=== PATIENT | female | born 1945 | race Hispanic/Latino ===

== ENCOUNTER 2018-01-02 09:30 | Observation (INO) | payer OTHER ==
[2018-01-01 15:08] LABS: BASOPHILS % (AUTO) 0.6 % (0.0-5.0); EOSINOPHILS % (AUTO) 0.9 % (0.0-8.0); LYMPHOCYTES % (AUTO) 24.8 % (21.0-51.0); MEAN CORPUSCULAR HEMOGLOBIN 30.8 pg (27.0-33.0); MEAN CORPUSCULAR HGB CONC 32.6 g/dL (32.0-36.0); MEAN CORPUSCULAR VOLUME 94.5 fL (79-99); NEUTROPHILS % (AUTO) 66.7 % (40.0-77.0); PLATELET COUNT (AUTO) 213 K/uL (130-400); RED BLOOD CELL COUNT(AUTO) 4.03 MIL/uL (4.00-5.50); RED CELL DISTRIBUTION WIDTH 13.2 % (11.0-15.5); WHITE BLOOD COUNT (AUTO) 11.7 K/uL (4.8-10.8)
[2018-01-01 15:15] VITALS: BP 153/71
[2018-01-01 15:22] LABS: INR 0.96 (0.85-1.15); PARTIAL THROMBOPLASTIN TIME 32.3 SEC (26.3-35.5); PROTHROMBIN TIME 10.1 SEC (9.6-11.6)
[2018-01-01 15:26] LABS: APPEARANCE,URINE Clear (CLEAR); BILIRUBIN,URINE Negative (NEGATIVE); COLOR,URINE Yellow (YELLOW); GLUCOSE, URINE (UA) >=1000 mg/dL (NEGATIVE); KETONES,URINE Negative (NEGATIVE); LEUKOCYTE ESTERASE ,URINE Small (NEGATIVE); NITRATE,URINE Negative (NEGATIVE); OCCULT BLOOD,URINE Negative (NEGATIVE); PROTEIN,URINE Negative (NEGATIVE); UROBILINOGEN,URINE 0.2 mg/dL (0.2-1.0)
[2018-01-01 15:50] LABS: BACTERIA,URINE Few /HPF (None Seen); RBC,URINE 0-1 /HPF (0-1); SQUAMOUS EPITHELIAL CELL,UR Few /HPF (0-2)
[2018-01-01 15:51] LABS: YEAST,URINE BUDDING Rare /HPF (None Seen)
[2018-01-02] VITALS (27 sets, daily range): BP systolic 54–169; BP diastolic 33–89
[~2018-01-02] VITALS: Ht 149.9 cm; Wt 77.8 kg
[~2018-01-02 09:30] MED LIST: ATOR40TA71 PO; GENTAMICIN SULFATE 240 MG in SODIUM CHLORIDE 0.9% 100 ML IV SCH; GLIP10TA9 PO; LEVO75TA10 PO; REPA2TAB8 PO; SMZ-TMP PO; TRAM50TA4 PO
[2018-01-02] MEDS: CLINDAMYCIN 900 MG/D5% WATER 50 ML IV SCH ×2 (10:00→12:20)
[2018-01-02] MEDS ORDERED: SODIUM CHLORIDE 0.9% 1000ML 1,000 ML IV ONE (10:26)
[2018-01-02] MEDS ORDERED: KETOROLAC TROMETHAMINE 15MG/ML ONE (10:42)
[2018-01-02] MEDS ORDERED: ACETAMINOPHEN EXTRA STRENGTH 500 MG TABLET ONE (10:42)
[2018-01-02] MEDS ORDERED: CELECOXIB 200 MG CAP ONE (10:43)
[2018-01-02] MEDS ORDERED: OXYCODONE HCL 10 MG TAB.SR.12H PO ONE (10:43)
[2018-01-02] MEDS ORDERED: TRANEXAMIC ACID 1000MG/10ML IV ONE (11:13)
[2018-01-02] MEDS ORDERED: BUPIVACAINE/EPI/PF 0.25% 30ML VIAL IJ ONE (11:13)
[2018-01-02] MEDS ORDERED: CLINDAMYCIN PHOSPHATE 150 MG/ML 6ML VIAL ONE (11:13)
[2018-01-02] MEDS ORDERED: FENTANYL CITRATE PF 50 MCG/1 ML 2ML VIAL ONE ×2 (11:14→15:13)
[2018-01-02] MEDS ORDERED: ONDANSETRON HCL 4 MG/2 ML VIAL ONE ×3 (11:14→16:27)
[2018-01-02] MEDS ORDERED: LIDOCAINE PF 2% 5ML ABBOJECT ONE (11:14)
[2018-01-02] MEDS ORDERED: ROPIVACAINE 0.5% 5MG/ML 30ML IJ ONE (11:14)
[2018-01-02] MEDS ORDERED: PROPOFOL 10 MG/ML 20ML VIAL IV ONE (11:14)
[2018-01-02] MEDS ORDERED: DEXAMETHASONE SOD PHOSPHATE 10MG/ML 1ML VIAL ONE (11:14)
[2018-01-02] MEDS ORDERED: ROCURONIUM 10MG/1ML SYR 10 MG/ML ML ONE (11:15)
[2018-01-02] MEDS ORDERED: MIDAZOLAM HCL 1 MG/ML 2ML VIAL ONE (11:15)
[2018-01-02] MEDS ORDERED: NEOSTIGMINE 5MG/5ML SYR IV ONE (11:15)
[2018-01-02] MEDS ORDERED: GLYCOPYRROLATE 1 MG/5 ML SYRINGE ONE (11:21)
[2018-01-02] MEDS ORDERED: EPHEDRINE SULFATE 50 MG/ML AMPULE ONE ×2 (12:00→15:32)
[2018-01-02] MEDS ORDERED: FAMOTIDINE/PF 20 MG/2 ML VIAL IV ONE (13:06)
[2018-01-02] MEDS ORDERED: VANCOMYCIN HCL 1 GM VIAL ONE (13:19)
[2018-01-02 14:16] LABS: BF LYMPHOCYTE 21 %; BF MESOTHELIAL 4 %; BF MONOCYTE 2 %
[2018-01-02] MEDS ORDERED: POTASSIUM CHLORIDE 20 MEQ ERTAB PO PRN (15:00)
[2018-01-02] MEDS ORDERED: CALCIUM CARBONATE 500 MG TABLET PO PRN (15:00)
[2018-01-02] MEDS ORDERED: TRAMADOL HCL 50 MG TABLET PO PRN (15:00)
[2018-01-02] MEDS ORDERED: OXYCODONE HCL 5 MG TAB PO PRN (15:00)
[2018-01-02] MEDS ORDERED: FERROUS FUMARATE 324 MG TABLET PO PRN (15:00)
[2018-01-02] MEDS ORDERED: DiphenhydrAMINE HCL 50 MG/ML VIAL IVP PRN (15:00)
[2018-01-02] MEDS ORDERED: POTASSIUM CHLORIDE 10% ELIXIR 20 MEQ/15 ML UDCUP PO PRN (15:00)
[2018-01-02] MEDS: ACETAMINOPHEN EXTRA STRENGTH 500 MG TABLET PO SCH ×2 (15:00→20:46)
[2018-01-02] MEDS ORDERED: POTASSIUM CHLORIDE 20MEQ/100ML 100 ML IV PRN (15:00)
[2018-01-02] MEDS ORDERED: KETOROLAC TROMETHAMINE 15MG/ML IV PRN (15:00)
[2018-01-02] MEDS ORDERED: LIDOCAINE HCL-MPF 1% 2ML VIAL IVP PRN (15:00)
[2018-01-02] MEDS ORDERED: TEMAZEPAM 15 MG CAPSULE PO PRN (15:00)
[2018-01-02 15:32] LABS: APPEARANCE BODY FLUID TURBID (CLEAR); COLOR,BODY FLUID RED (LT YELLOW); SPECIMENTYPE,BODY FLUID SYNOVIAL; TOTAL VOLUME,BODY FLUID 3 mL
[2018-01-02 15:33] LABS: BODY FLUID RBC 41093 /cu. mm.; BODY FLUID WBC 223 /cu. mm.
[2018-01-02] MEDS: ONDANSETRON HCL 4 MG/2 ML VIAL IVP PRN (15:54)
[2018-01-02] MEDS: INSULIN HUMULIN R 100 UNIT/ML 3ML SQ SCH ×2 (16:30→22:04)
[2018-01-02] MEDS: PREGABALIN 25 MG CAP PO SCH (20:45)
[2018-01-02] MEDS: ASPIRIN 325 MG TABLET PO SCH (20:45)
[2018-01-02] MEDS: CLINDAMYCIN 900 MG/D5% WATER 50 ML IVPB SCH (20:45)
[2018-01-02] MEDS: CELECOXIB 200 MG CAP PO SCH (20:45)
[2018-01-02] MEDS: SODIUM CHLORIDE 0.9% 1000ML 1,000 ML IV SCH (20:46)
[2018-01-02] MEDS: REPAGLINIDE 1 MG TAB PO SCH (20:46)
[2018-01-02] MEDS: OXYCODONE HCL 5 MG TAB PO PRN (20:47)
[2018-01-02] MEDS ORDERED: INSLAN SQ (21:54)
[2018-01-03] MEDS: OXYCODONE HCL 5 MG TAB PO PRN ×2 (01:13→13:44)
[2018-01-03] MEDS: SODIUM CHLORIDE 0.9% 1000ML 1,000 ML IV SCH ×2 (01:13→08:46)
[2018-01-03] MEDS: CLINDAMYCIN 900 MG/D5% WATER 50 ML IVPB SCH (03:23)
[2018-01-03 04:26] VITALS: BP 139/62
[2018-01-03 04:55] LABS: HEMATOCRIT 32.4 % (36-48); MEAN CORPUSCULAR HEMOGLOBIN 30.9 pg (27.0-33.0); MEAN CORPUSCULAR HGB CONC 32.7 g/dL (32.0-36.0); MEAN CORPUSCULAR VOLUME 94.6 fL (79-99); PLATELET COUNT (AUTO) 172 K/uL (130-400); RED BLOOD CELL COUNT(AUTO) 3.43 MIL/uL (4.00-5.50); RED CELL DISTRIBUTION WIDTH 13.1 % (11.0-15.5); WHITE BLOOD COUNT (AUTO) 16.3 K/uL (4.8-10.8)
[2018-01-03 05:07] LABS: CREATININE 1.7 mg/dL (0.5-1.5); POTASSIUM 4.6 mmol/L (3.5-5.1)
[2018-01-03] MEDS: INSULIN HUMULIN R 100 UNIT/ML 3ML SQ SCH ×3 (05:17→20:47)
[2018-01-03] MEDS ORDERED: LEVOTHYROXINE 75 MCG TABLET ONE (05:19)
[2018-01-03] MEDS ORDERED: LEVOTHYROXINE 75 MCG TABLET PO SCH (06:30)
[2018-01-03 07:33] VITALS: BP 139/74
[2018-01-03] MEDS: GLIPIZIDE 5 MG TABLET PO SCH ×2 (08:55→20:42)
[2018-01-03] MEDS: ACETAMINOPHEN EXTRA STRENGTH 500 MG TABLET PO SCH ×2 (08:55→16:00)
[2018-01-03] MEDS: CELECOXIB 200 MG CAP PO SCH ×2 (08:55→20:42)
[2018-01-03] MEDS: ASPIRIN 325 MG TABLET PO SCH ×2 (08:55→20:42)
[2018-01-03] MEDS: PREGABALIN 25 MG CAP PO SCH ×2 (08:56→20:42)
[2018-01-03] MEDS: REPAGLINIDE 1 MG TAB PO SCH ×3 (08:56→20:42)
[2018-01-03] MEDS ORDERED: ATORVASTATIN CALCIUM 40 MG TABLET PO SCH (09:00)
[2018-01-03] MEDS ORDERED: FAMOTIDINE 20MG TAB 20 MG TAB PO SCH (09:00)
[2018-01-03] MEDS ORDERED: POLYETHYLENE GLYCOL 3350 17 GM POWD.PACK PO SCH (09:00)
[2018-01-03] MEDS: ONDANSETRON HCL 4 MG/2 ML VIAL IVP PRN (09:06)
[2018-01-03 11:12] VITALS: BP 146/74
[2018-01-03 16:00] VITALS: BP 140/71
[2018-01-03] MEDS ORDERED: ASPI-1012 PO (18:20)
[2018-01-03] MEDS ORDERED: HYDR-4457 PO (18:20)
[2018-01-03] MEDS ORDERED: INSULIN GLARGINE 100 UNITS/ML 10 ML VIAL SQ SCH (21:00)
[2018-01-05] MEDS ORDERED: BISACODYL 10 MG SUPP.RECT RC PRN (15:00)
== END 2018-01-03 21:15 ==
LOC: DAH 09:30 → DAHIP 09:31 → DAH 09:31 → 4AH 15:45
PROVIDERS: ADMIT Orthopaedic Surgery; ATTEND Orthopaedic Surgery
DX: M17.32 Unilateral post-traumatic osteoarthritis, left knee (principal); Z79.899 Other long term (current) drug therapy; Z79.01 Long term (current) use of anticoagulants
CPT/HCPCS: 27447; 36415 ×2; 80048; 81001; 82948 ×8; 85025; 85027; 85610; 85730; 87070; 87076; 87205; 88305; 88311; 89051; 96365; 96366; 96367; 96372 ×2; 96375; 96376 ×2; 97116 ×2; 97161; 97530; A4215; A4600; A4649 ×5; A4930 ×3; A9272; C1763; C1776; G0378 ×36; G8978; G8979; G8980; G8981; G8982; G8983; J1100; J1580; J1815 ×4; J1885; J2001; J2250; J2405 ×5; J2704; J2710; J2795; J3010 ×2; J3370; J3490 ×8; J7030 ×2; 96374

== ENCOUNTER 2019-01-30 06:41 | Observation (INO) | payer OTHER ==
[2019-01-29 15:39] LABS: BASOPHILS % (AUTO) 0.5 % (0.0-5.0); BILIRUBIN,URINE Negative (NEGATIVE); COLOR,URINE Yellow (YELLOW); EOSINOPHILS % (AUTO) 0.7 % (0.0-8.0); GLUCOSE, URINE (UA) TRACE mg/dL (NEGATIVE); HEMATOCRIT 36.4 % (36-48); KETONES,URINE Negative (NEGATIVE); LEUKOCYTE ESTERASE ,URINE Moderate (NEGATIVE); LYMPHOCYTES % (AUTO) 19.7 % (21.0-51.0); MEAN CORPUSCULAR HEMOGLOBIN 31.1 pg (27.0-33.0); MEAN CORPUSCULAR HGB CONC 33.7 g/dL (32.0-36.0); MEAN CORPUSCULAR VOLUME 92.3 fL (79-99); MONOCYTES % (AUTO) 7.7 % (3.0-13.0); NEUTROPHILS % (AUTO) 71.4 % (40.0-77.0); NITRATE,URINE Negative (NEGATIVE); OCCULT BLOOD,URINE Negative (NEGATIVE); PLATELET COUNT (AUTO) 190 K/uL (130-400); PROTEIN,URINE Trace mg/dL (NEGATIVE); RED BLOOD CELL COUNT(AUTO) 3.94 MIL/uL (4.00-5.50); WHITE BLOOD COUNT (AUTO) 13.3 K/uL (4.8-10.8)
[2019-01-29 15:56] LABS: APPEARANCE,URINE SLIGHTLY CLOUDY (CLEAR)
[2019-01-29 16:03] LABS: BACTERIA,URINE Few /HPF (None Seen); RBC,URINE 0-1 /HPF (0-1)
[2019-01-29 16:04] LABS: SQUAMOUS EPITHELIAL CELL,UR Few /HPF (0-2)
[2019-01-29 16:57] VITALS: BP 177/78
--- NOTE | 2019-01-29 18:34 | NUR ---
UA INFORMED DR. VALDEZ OF ABNORMAL UA. ORDERS RECEIVED TO GIVE GENTAMICIN 240MG IV ON AM OF PROCEDURE AND SEND URINE FOR CULTURE.
[2019-01-30] VITALS (24 sets, daily range): BP systolic 90–153; BP diastolic 42–76
[~2019-01-30] VITALS: Ht 147.3 cm; Wt 74.8 kg
[2019-01-30] MEDS: CLINDAMYCIN 900 MG/D5% WATER 50 ML IV SCH ×2 (06:00→08:40)
[~2019-01-30 06:41] MED LIST changes: +FURO20TA4 PO; -GENTAMICIN SULFATE 240 MG in SODIUM CHLORIDE 0.9% 100 ML IV SCH; +INSU3INS3 SQ; +LEVO100T12 PO; -LEVO75TA10 PO; +SIME180C46 PO; -SMZ-TMP PO
--- NOTE | 2019-01-30 07:20 | NUR ---
ANT BITES pt states she stepped on an ant bed prior to admission to the hospital ,several small red areas observed on pts right foot ,warm to touch ,notified Adam Sandoval Addendum: 01/30/19 at 1107 by STEVAN CRUZ RN RN Amended: Links added.
[2019-01-30] MEDS ORDERED: GENTAMICIN SULFATE 240 MG in SODIUM CHLORIDE 0.9% 100 ML IV SCH ×2 (07:30)
[2019-01-30] MEDS ORDERED: SODIUM CHLORIDE 0.9% 1000ML 1,000 ML IV ONE (07:43)
[2019-01-30] MEDS ORDERED: CLINDAMYCIN PHOSPHATE 150 MG/ML 6ML VIAL ONE (07:47)
[2019-01-30] MEDS ORDERED: DiphenhydrAMINE HCL 50 MG/ML VIAL ONE (08:12)
[2019-01-30] MEDS: GENTAMICIN SULFATE 240 MG in SODIUM CHLORIDE 0.9% 100 ML IV SCH ×3 (08:15→12:45)
[2019-01-30] MEDS ORDERED: LIDOCAINE PF 2% 5ML ABBOJECT ONE (08:23)
[2019-01-30] MEDS ORDERED: PROPOFOL 10 MG/ML 20ML VIAL IV ONE (08:24)
[2019-01-30] MEDS ORDERED: ONDANSETRON HCL 4 MG/2 ML VIAL ONE (08:24)
[2019-01-30] MEDS ORDERED: MIDAZOLAM HCL 1 MG/ML 2ML VIAL ONE (08:24)
[2019-01-30] MEDS ORDERED: DEXAMETHASONE SOD PHOSPHATE 10MG/ML 1ML VIAL ONE (08:24)
[2019-01-30] MEDS ORDERED: FENTANYL CITRATE PF 50 MCG/1 ML 2ML VIAL ONE ×2 (08:25→09:09)
[2019-01-30] MEDS ORDERED: ROCURONIUM 10MG/1ML SYR 10 MG/ML ML ONE (08:28)
[2019-01-30] MEDS ORDERED: TRANEXAMIC ACID 1000MG/10ML IV ONE ×2 (08:28→11:09)
[2019-01-30] MEDS: TRANEXAMIC ACID 1,000 MG in SODIUM CHLORIDE 0.9% 100 ML IV SCH (08:45)
[2019-01-30] MEDS ORDERED: EPHEDRINE SULFATE 50 MG/ML AMPULE ONE (08:53)
[2019-01-30] MEDS: SODIUM CHLORIDE 0.9% 1000ML 1,000 ML IV SCH (10:31)
[2019-01-30] MEDS ORDERED: OXYCODONE HCL 5 MG TAB PO PRN ×2 (10:45)
[2019-01-30] MEDS ORDERED: POTASSIUM CHLORIDE 20 MEQ ERTAB PO PRN (10:45)
[2019-01-30] MEDS ORDERED: LIDOCAINE HCL-MPF 1% 2ML VIAL IV PRN (10:45)
[2019-01-30] MEDS ORDERED: POTASSIUM CHLORIDE 10% ELIXIR 20 MEQ/15 ML UDCUP PO PRN (10:45)
[2019-01-30] MEDS ORDERED: POTASSIUM CHLORIDE 20MEQ/100ML 100 ML IV PRN (10:45)
[2019-01-30] MEDS ORDERED: ONDANSETRON HCL 4 MG/2 ML VIAL IVP PRN (10:45)
[2019-01-30] MEDS ORDERED: DiphenhydrAMINE HCL 50 MG/ML VIAL IVP PRN (10:45)
[2019-01-30] MEDS: ACETAMINOPHEN EXTRA STRENGTH 500 MG TABLET PO SCH ×2 (10:45→18:32)
[2019-01-30] MEDS ORDERED: CALCIUM CARBONATE 500 MG TABLET PO PRN (10:45)
[2019-01-30] MEDS ORDERED: GLYCOPYRROLATE 1 MG/5 ML SYRINGE ONE (10:57)
[2019-01-30] MEDS ORDERED: NEOSTIGMINE 5MG/5ML SYR IV ONE (10:58)
[2019-01-30] MEDS ORDERED: ATOR40TA71 PO (11:02)
[2019-01-30] MEDS: INSULIN HUMULIN R 100 UNIT/ML 3ML SQ SCH ×3 (11:30→21:52)
[2019-01-30] MEDS ORDERED: PHARMACY COMMUNICATION MISC SCH (12:30)
[2019-01-30] MEDS ORDERED: GLIPIZIDE 5 MG TABLET PO SCH (16:30)
[2019-01-30] MEDS: VANCOMYCIN 1GM+NS 250ML 250 ML IV SCH (17:03)
[2019-01-30] MEDS: REPAGLINIDE 1 MG TAB PO SCH (17:06)
[2019-01-30] MEDS: INSULIN GLARGINE 100 UNITS/ML 10 ML VIAL SQ SCH (17:13)
[2019-01-30] MEDS: PREGABALIN 25 MG CAP PO SCH (21:48)
[2019-01-30] MEDS: ASPIRIN 81MG TAB.CHEW PO SCH (21:49)
[2019-01-30] MEDS: CELECOXIB 200 MG CAP PO SCH (21:49)
[2019-01-31 03:37] VITALS: BP 112/57
[2019-01-31] MEDS: ACETAMINOPHEN EXTRA STRENGTH 500 MG TABLET PO SCH ×3 (04:08→18:45)
[2019-01-31] MEDS: SODIUM CHLORIDE 0.9% 1000ML 1,000 ML IV SCH ×2 (04:09→06:18)
[2019-01-31] MEDS: VANCOMYCIN 1GM+NS 250ML 250 ML IV SCH (04:09)
[2019-01-31 04:15] LABS: CREATININE 1.8 mg/dL (0.5-1.5); POTASSIUM 4.3 mmol/L (3.5-5.1)
[2019-01-31] MEDS: GLIPIZIDE 5 MG TABLET PO SCH ×2 (06:17→16:34)
[2019-01-31] MEDS: INSULIN HUMULIN R 100 UNIT/ML 3ML SQ SCH ×3 (06:18→16:31)
[2019-01-31] MEDS ORDERED: LEVOTHYROXINE 100 MCG TABLET PO SCH (06:30)
[2019-01-31] MEDS: TRANEXAMIC ACID 1,000 MG in SODIUM CHLORIDE 0.9% 100 ML IV SCH (07:08)
[2019-01-31 07:38] VITALS: BP 133/66
[2019-01-31] MEDS ORDERED: GENTAMICIN SULFATE 240 MG in SODIUM CHLORIDE 0.9% 100 ML IV SCH (08:00)
[2019-01-31] MEDS: INSULIN GLARGINE 100 UNITS/ML 10 ML VIAL SQ SCH ×2 (08:33→16:30)
[2019-01-31] MEDS: TRAMADOL HCL 50 MG TABLET PO PRN ×2 (08:35→17:36)
--- NOTE | 2019-01-31 08:50 | NUR ---
GENTAMICIN CALLED PHARMACY AND SPOKE TO EDI TO REPORT THAT PATIENT HAS GENTAMICIN DOSE DUE THIS MORNING BUT I AM UNABLE TO PULL MEDICATION OUT OF OMNICELL. EDI TOLD ME SHE WOULD ASK PHARMACIST TO PROFILE MEDICATION SO I WOULD BE ABLE TO PULL MEDICATION.
[2019-01-31] MEDS: REPAGLINIDE 1 MG TAB PO SCH ×3 (08:57→16:33)
[2019-01-31] MEDS ORDERED: FUROSEMIDE 20 MG TABLET PO SCH (09:00)
[2019-01-31] MEDS ORDERED: COMPOUND IV REFRIGERATED 1 EACH IVSOLN MISC PRN (09:00)
[2019-01-31] MEDS ORDERED: POLYETHYLENE GLYCOL 3350 17 GM POWD.PACK PO SCH (09:00)
[2019-01-31] MEDS ORDERED: FAMOTIDINE 20MG TAB 20 MG TAB PO SCH (09:00)
[2019-01-31] MEDS: CELECOXIB 200 MG CAP PO SCH ×2 (09:39→20:57)
[2019-01-31] MEDS: PREGABALIN 25 MG CAP PO SCH ×2 (09:39→20:58)
[2019-01-31] MEDS: ASPIRIN 81MG TAB.CHEW PO SCH ×2 (09:40→20:58)
--- NOTE | 2019-01-31 10:00 | NUR ---
MET W PATIENT - ALONE, AAOXEmiliano LIVES [place], HAS ROLLING WALKER AT HOME NO STAIRS, DRIVES, FAMILY CLOSE BY, PREVIOSULY INDEPENDENT OF ADLS, RECENT PURCHASE WALKER WITH WHEELS, PT REQUESTING FACLITY PLACMENT- REQUEST SENT, AUTH PENDING VAN ANTONI, CHART TAGGED Addendum: 01/31/19 at 0 by BAO COTTER RN CM Amended: Links added.
[2019-01-31 11:30] VITALS: BP 126/79
--- NOTE | 2019-01-31 13:35 | NUR ---
DISCHARGE/RETAMA PENDING FOR DR. VALDEZ TO ARRIVE TO FLOOR TO BRING PATIENT SCRIPT FOR FORTUNA.
[2019-01-31] MEDS ORDERED: ASPI-1005 PO (13:38)
[2019-01-31] MEDS ORDERED: HYDR-4457 PO (13:38)
--- NOTE | 2019-01-31 15:45 | NUR ---
SANGITA DAVIDSON RN AWARE, PASSR SENT CHART TAGGED, VAN TRANSPORT Addendum: 01/31/19 at 1927 by BAO COTTER RN CM Amended: Links added.
[2019-01-31 15:57] VITALS: BP 124/94
[2019-01-31] MEDS ORDERED: MACR100 PO (18:50)
[2019-02-02] MEDS ORDERED: BISACODYL 10 MG SUPP.RECT RC PRN (10:45)
[2019-02-04] MEDS ORDERED: ATORVASTATIN CALCIUM 40 MG TABLET PO SCH (21:00)
== END 2019-01-31 21:32 ==
LOC: DAH 06:41 → DAHIP 06:42 → DAH 06:42 → 4AH 11:17 → EDSTATUS 14:00
PROVIDERS: ADMIT Orthopaedic Surgery; ATTEND Orthopaedic Surgery
DX: M17.11 Unilateral primary osteoarthritis, right knee (principal); E11.22 Type 2 diabetes mellitus with diabetic chronic kidney disease; N18.3 Chronic kidney disease, stage 3 (moderate); M19.90 Unspecified osteoarthritis, unspecified site; Z90.49 Acquired absence of other specified parts of digestive tract; Z96.652 Presence of left artificial knee joint; Z79.4 Long term (current) use of insulin; Z79.82 Long term (current) use of aspirin; Z79.899 Other long term (current) drug therapy; Z88.0 Allergy status to penicillin
CPT/HCPCS: 27447; 36415 ×2; 80048; 81001; 82948 ×7; 85025; 87088; 87641; 88305; 88311; 96365; 96366 ×2; 96367; 96372 ×2; 96375; 97039 ×2; 97116; 97161; 97530 ×3; A4215; A4221; A4222; A4223; A4600; A4649 ×4; A4663; A4930 ×3; A5120; C1763; C1776; G0168; G0378 ×33; G8979; G8980; G8981; G8982; G8983; J1100; J1200; J1580 ×2; J1815 ×5; J2001; J2250; J2405; J2704; J2710; J3010 ×2; J3370 ×2; J3490 ×6; J7030 ×2; J7120; 96368; 96374

== ENCOUNTER 2019-02-18 15:43 | Inpatient (IN) | payer OTHER ==
[~2019-02-18] VITALS: Ht 152.4 cm; Wt 72.4 kg
[~2019-02-18 15:43] MED LIST changes: +ASPI-1005 PO; +HYDR-4457 PO; +MACR100 PO; -SIME180C46 PO; -TRAM50TA4 PO
[2019-02-18 16:22] LABS: BASOPHILS % (AUTO) 0.3 % (0.0-5.0); HEMATOCRIT 32.1 % (36-48); LYMPHOCYTES % (AUTO) 1.5 % (21.0-51.0); MEAN CORPUSCULAR HEMOGLOBIN 30.9 pg (27.0-33.0); MEAN CORPUSCULAR HGB CONC 33.1 g/dL (32.0-36.0); MEAN CORPUSCULAR VOLUME 93.6 fL (79-99); MONOCYTES % (AUTO) 2.6 % (3.0-13.0); NEUTROPHILS % (AUTO) 95.6 % (40.0-77.0); PLATELET COUNT (AUTO) 247 K/uL (130-400); RED BLOOD CELL COUNT(AUTO) 3.43 MIL/uL (4.00-5.50); RED CELL DISTRIBUTION WIDTH 14.5 % (11.0-15.5); WHITE BLOOD COUNT (AUTO) 28.1 K/uL (4.8-10.8)
[2019-02-18] MEDS ORDERED: MEROPENEM 1 GM VIAL ONE ×2 (16:36→16:37)
[2019-02-18] MEDS ORDERED: SODIUM CHLORIDE 0.9% 0 ML IV ONE (16:36)
[2019-02-18] MEDS ORDERED: SODIUM CHLORIDE 0.9% 100 ML IV ONE (16:37)
[2019-02-18 16:54] LABS: ALBUMIN 2.8 g/dL (3.5-5.0); BILIRUBIN,TOTAL 0.5 mg/dL (0.2-1.0); CREATININE 2.3 mg/dL (0.5-1.5); POTASSIUM 4.1 mmol/L (3.5-5.1); TOTAL PROTEIN, SERUM 7.2 g/dL (6.0-8.3)
[2019-02-18 17:08] LABS: APPEARANCE,URINE SL CLOUDY (CLEAR); BILIRUBIN,URINE NEGATIVE (NEGATIVE); COLOR,URINE YELLOW (YELLOW); GLUCOSE, URINE (UA) NEGATIVE (NEGATIVE); KETONES,URINE NEGATIVE (NEGATIVE); LEUKOCYTE ESTERASE ,URINE SMALL (NEGATIVE); NITRATE,URINE NEGATIVE (NEGATIVE); OCCULT BLOOD,URINE MODERATE (NEGATIVE); PH,URINE 6.5 (5.0-8.0); PROTEIN,URINE TRACE mg/dL (NEGATIVE); UROBILINOGEN,URINE 0.2 mg/dL (0.2-1.0)
[2019-02-18 17:09] LABS: INR 1.04 (0.85-1.15); PROTHROMBIN TIME 10.9 SEC (9.6-11.6)
[2019-02-18 17:11] LABS: BACTERIA,URINE Moderate /HPF (None Seen)
[2019-02-18 17:12] LABS: MUCUS,URINE Few LPF (None Seen)
[2019-02-18 17:15] LABS: TROPONIN I 0.05 ng/mL (0.00-0.06)
[2019-02-18] MEDS ORDERED: ACETAMINOPHEN 325 MG TAB ONE ×2 (17:59→18:04)
--- NOTE | 2019-02-18 21:30 | NUR ---
REPORT RECEIVED PHONE REPORT FROM IRAIDA DURANT NURSE. FIELD APPLICATION ENGINEER WAS INFORMED THAT DR VALDEZ WAS MADE AWARE OF CONSULT WHILE PT IS IN ER.
[2019-02-18 22:45] VITALS: BP 116/55
--- NOTE | 2019-02-18 22:50 | NUR ---
ADMIT PT ADMITTED TO ROOM 416, AAOX3, DENIES ANY PAINS AT THIS TIME. RT KNEE A BIT SWOLLEN AND IS WARM TO TOUCH BUT PT STILL ABLE TO MOVE BUT WITH LIMITED ROM. ADMISSION CARE DONE. ADMISSION DATA BASE COMPLETED. HOME MEDS UPDATED AND CONTINUED PER MD ORDER. ORIENTED TO ROOM AND UNIT. SPOUSE ARRIVES AND STATED WILL STAY THE NIGHT. IN FOR MORE CARE AND MANAGEMENT. Addendum: 02/19/19 at 0018 by PIERRE BUCIO RN RN Amended: Links added.
[2019-02-18] MEDS ORDERED: RENAL DOSE IV SCH (23:00)
[2019-02-18] MEDS ORDERED: ONDANSETRON ODT 4 MG TAB PO PRN (23:15)
[2019-02-18] MEDS ORDERED: SIME180C46 PO (23:22)
[2019-02-18] MEDS ORDERED: TRAM50TA4 PO (23:22)
[2019-02-18] MEDS ORDERED: ONDA4TAB10 PO (23:22)
[2019-02-18] MEDS ORDERED: [UNRECOGNIZED DRUG - OTHER] PO (23:22)
[2019-02-18] MEDS: MEROPENEM 500 MG VIAL IVP SCH (23:30)
[2019-02-18] MEDS ORDERED: SIMETHICONE 80 MG TAB.CHEW PO PRN (23:45)
--- NOTE | 2019-02-19 02:00 | NUR ---
ROUNDS PT RESTING WELL, FAIRLY ASLEEP WITH RESPIRATIONS EVEN AND UNLABORED. NO NOTED DISTRESS. KEPT UNDISTURBED FOR NOW. WILL MONITOR PT. SPOUSE ASLEEP AT BEDSIDE.
[2019-02-19 03:43] VITALS: BP 99/49
[2019-02-19] MEDS: LEVOTHYROXINE 100 MCG TABLET PO SCH (05:47)
[2019-02-19] MEDS: INSULIN HUMULIN R 100 UNIT/ML 3ML SQ SCH ×4 (05:53→19:56)
--- NOTE | 2019-02-19 05:53 | NUR ---
MEDS AWAKENED PT FOR DUE MEDS, TOLERATED WELL. NO CONCERNS VERBALIZED AT THIS TIME. KEPT RESTED AND COMFORTABLE. FOR MORE CARE.
[2019-02-19 06:32] LABS: HEMATOCRIT 26.2 % (36-48); MEAN CORPUSCULAR HEMOGLOBIN 30.4 pg (27.0-33.0); MEAN CORPUSCULAR HGB CONC 32.9 g/dL (32.0-36.0); MEAN CORPUSCULAR VOLUME 92.4 fL (79-99); PLATELET COUNT (AUTO) 210 K/uL (130-400); RED BLOOD CELL COUNT(AUTO) 2.83 MIL/uL (4.00-5.50); RED CELL DISTRIBUTION WIDTH 13.9 % (11.0-15.5); WHITE BLOOD COUNT (AUTO) 20.6 K/uL (4.8-10.8)
[2019-02-19 06:38] LABS: POTASSIUM 3.6 mmol/L (3.5-5.1)
[2019-02-19 08:01] VITALS: BP 109/54
[2019-02-19] MEDS ORDERED: ASPIRIN 81MG TAB.CHEW PO SCH (09:00)
[2019-02-19] MEDS: FUROSEMIDE 20 MG TABLET PO SCH (10:40)
[2019-02-19] MEDS: REPAGLINIDE 1 MG TAB PO SCH ×3 (10:40→17:12)
[2019-02-19] MEDS: INSULIN GLARGINE 100 UNITS/ML 10 ML VIAL SQ SCH ×2 (10:44→19:56)
[2019-02-19 10:46] VITALS: BP 114/58
--- NOTE | 2019-02-19 11:25 | NUR ---
DCP CM met with pt and spouse discussed dc plans. Pt is semi-independent, lives at home w/spouse. Pt has a rolling walker, walker w/wheels, standard walker, bedside commode. Denies any other equipments/services. Feels safe to go back home, spouse able to assist with transportation and needs as necessary. DC plan to home once stable. CM to cont to follow up. Addendum: 02/19/19 at 1126 by KELLEY JEWELL LVN CM Amended: Links added.
[2019-02-19 15:59] VITALS: BP 132/65
--- NOTE | 2019-02-19 19:32 | NUR ---
FEVER PCP INFORMS INDUSTRIAL AERIAL INSTALLER THAT PT HAS A [id number]. PAGED TRANSACTION ADVISORY SERVICES MANAGER ELECTRONIC TESTER FOR [employer] VIA ANSWERING SERVICE, AWAITING CALL BACK.
[2019-02-19 19:45] VITALS: BP 131/65
[2019-02-19] MEDS ORDERED: PHARMACY COMMUNICATION MISC SCH (19:45)
--- NOTE | 2019-02-19 19:47 | NUR ---
UI PROGRAMMER UI PROGRAMMER RYAN, CALLED BACK AND REFERRED PT'S SPIKE OF FEVER. NEW ORDERS GIVEN, PLEASE REFER TO CPOE.
[2019-02-19] MEDS ORDERED: ACETAMINOPHEN 325 MG TAB ONE (19:52)
[2019-02-19] MEDS: ATORVASTATIN CALCIUM 40 MG TABLET PO SCH (19:56)
--- NOTE | 2019-02-19 19:56 | NUR ---
MEDS SHIFT ASSESSMENT DONE, PLEASE REFER TO CHART. DUE MEDS ADMINISTERED, TYLENOL GIVEN FOR FEVER. REMOVED EXTRA BLANKET. KEPT ROOM TEMPERATURE COOL. WILL RE-ASSESS PT. Addendum: 02/20/19 at 0034 by PIERRE BUCIO RN RN Amended: Links added.
[2019-02-19] MEDS ORDERED: ACETAMINOPHEN 325 MG TAB PO PRN (20:00)
--- NOTE | 2019-02-19 21:40 | NUR ---
RE-CHECK PT'S TEMPERATURE RE-CHECKED=99.1. KEPT RESTED AND COMFORTABLE IN BED. CALL LIGHT WITHIN REACH. WILL MONITOR PT. SPOUSE AT BEDSIDE.
--- NOTE | 2019-02-19 21:55 | NUR ---
RX PT'S MED OF CLINDAMYCIN STILL NOT PROFILED BY PHARMACY. TRIED CALLING RX BUT NO ANSWER. WILL START MED MD ORDERED AND REAL ESTATE ASSOCIATE ATTORNEY WILL FOLLOW UP WITH RX IN AM.
[2019-02-19] MEDS ORDERED: CLINDAMYCIN 300 MG/D5W 50 ML 50 ML IV ONE (22:23)
[2019-02-19] MEDS: MEROPENEM 500 MG VIAL IVP SCH (22:26)
[2019-02-19 23:41] VITALS: BP 129/62
[2019-02-20] MEDS: ASPIRIN 81 MG EC TAB PO SCH ×3 (00:18→21:19)
--- NOTE | 2019-02-20 02:00 | NUR ---
ROUNDS PT RESTING WELL, FAIRLY ASLEEP WITH RESPIRATIONS EVEN AND UNLABORED. NO NOTED DISTRESS. KEPT UNDISTURBED FOR NOW. WILL MONITOR PT. CALL LIGHT WITHIN REACH. SPOUSE ASLEEP AT BEDSIDE.
[2019-02-20 03:00] VITALS: BP 139/71
--- NOTE | 2019-02-20 05:20 | NUR ---
BLOOD SUGAR PT'S BLOOD SUGAR=40. PT IS AAOX3. DENIES ANY DISCOMFORT AT THIS TIME. PT IS ASYMPTOMATIC. FOOD PROVIDED FOR PT TO TAKE. WILL RE-ASSESS PT.
[2019-02-20] MEDS: LEVOTHYROXINE 100 MCG TABLET PO SCH (05:52)
[2019-02-20] MEDS: INSULIN HUMULIN R 100 UNIT/ML 3ML SQ SCH ×4 (05:52→21:00)
[2019-02-20] MEDS ORDERED: CLINDAMYCIN 300 MG/D5W 50 ML 50 ML IV SCH (06:00)
[2019-02-20 06:20] LABS: BASOPHILS % (AUTO) 0.1 % (0.0-5.0); EOSINOPHILS % (AUTO) 3.4 % (0.0-8.0); HEMATOCRIT 30.8 % (36-48); LYMPHOCYTES % (AUTO) 10.5 % (21.0-51.0); MEAN CORPUSCULAR HGB CONC 33.1 g/dL (32.0-36.0); MEAN CORPUSCULAR VOLUME 93.5 fL (79-99); PLATELET COUNT (AUTO) 202 K/uL (130-400); RED BLOOD CELL COUNT(AUTO) 3.29 MIL/uL (4.00-5.50); RED CELL DISTRIBUTION WIDTH 14.1 % (11.0-15.5); WHITE BLOOD COUNT (AUTO) 11.9 K/uL (4.8-10.8)
[2019-02-20 06:21] LABS: CREATININE 1.8 mg/dL (0.5-1.5); POTASSIUM 3.4 mmol/L (3.5-5.1)
--- NOTE | 2019-02-20 07:00 | NUR ---
WELCOME CENTER ATTENDANT WELCOME CENTER ATTENDANT, MS [employer] MADE AWARE OF PT'S LOW GLUCOSE THIS AM. NEW ORDER FOR HYPOGLYCEMIA PROTOCOL RECEIVED, PLEASE REFER TO CPOE.
[2019-02-20] MEDS ORDERED: GLUCAGON 1MG KIT 1 MG ML IM PRN (07:30)
[2019-02-20 08:00] VITALS: BP 131/63
[2019-02-20] MEDS: REPAGLINIDE 1 MG TAB PO SCH ×3 (09:28→17:00)
[2019-02-20] MEDS: GLIPIZIDE 5 MG TABLET PO SCH ×2 (09:28→17:34)
[2019-02-20] MEDS: FUROSEMIDE 20 MG TABLET PO SCH (09:28)
[2019-02-20] MEDS: PANTOPRAZOLE SODIUM 40 MG TABLET.DR PO SCH (09:29)
[2019-02-20] MEDS: ENOXAPARIN SODIUM 30 MG/0.3 ML SQ SCH (09:29)
--- NOTE | 2019-02-20 10:43 | NUR ---
0900- waiting for Dr. Sandoval consult prior to initiate Physical Therapy Evaluation.Notified TANNA Clark and Micah Nurse Addendum: 02/20/19 at 1046 by JANEEN CARREON, PT PT Amended: Links added.
[2019-02-20 11:53] VITALS: BP 147/70
[2019-02-20] MEDS: INSULIN GLARGINE 100 UNITS/ML 10 ML VIAL SQ SCH ×2 (11:58→21:23)
--- NOTE | 2019-02-20 12:36 | NUR ---
1228 had pt sign IM Letter,faxed to [phone] and placed in chart under consent tab.
[2019-02-20] MEDS ORDERED: VANCOMYCIN PROTOCOL PER PHARMACY IV SCH (14:15)
[2019-02-20] MEDS ORDERED: COMPOUND IV REFRIGERATED 1 EACH IVSOLN MISC PRN (14:30)
[2019-02-20 16:00] VITALS: BP 145/69
[2019-02-20] MEDS: VANCOMYCIN 1.25 GM in SODIUM CHLORIDE 0.9% 250 ML IV SCH (17:33)
--- NOTE | 2019-02-20 18:19 | NUR ---
inserted new IV on the left hand 20 Gauge.
[2019-02-20 19:00] VITALS: BP 141/67
[2019-02-20] MEDS: ATORVASTATIN CALCIUM 40 MG TABLET PO SCH (21:18)
[2019-02-20] MEDS: TRAMADOL HCL 50 MG TABLET PO PRN (21:19)
[2019-02-20] MEDS ORDERED: POTASSIUM CHLORIDE 10% ELIXIR 20 MEQ/15 ML UDCUP PO PRN (23:15)
[2019-02-20] MEDS ORDERED: LIDOCAINE HCL-MPF 1% 2ML VIAL IV PRN (23:15)
[2019-02-20] MEDS ORDERED: POTASSIUM CHLORIDE 20 MEQ ERTAB PO PRN (23:15)
[2019-02-20] MEDS ORDERED: POTASSIUM CHLORIDE 20MEQ/100ML 100 ML IV PRN (23:15)
[2019-02-20 23:44] VITALS: BP 140/62
[2019-02-20] MEDS: MEROPENEM 500 MG VIAL IVP SCH (23:48)
[2019-02-21 04:00] VITALS: BP 137/71
[2019-02-21 04:29] LABS: HEMATOCRIT 27.6 % (36-48); MEAN CORPUSCULAR HEMOGLOBIN 30.8 pg (27.0-33.0); MEAN CORPUSCULAR HGB CONC 33.5 g/dL (32.0-36.0); PLATELET COUNT (AUTO) 203 K/uL (130-400); RED CELL DISTRIBUTION WIDTH 13.8 % (11.0-15.5); WHITE BLOOD COUNT (AUTO) 7.8 K/uL (4.8-10.8)
[2019-02-21 04:45] LABS: CREATININE 1.9 mg/dL (0.5-1.5); POTASSIUM 4.1 mmol/L (3.5-5.1)
[2019-02-21] MEDS: DEXTROSE 50%-WATER 50 ML DISP.SYRIN IV PRN (05:36)
[2019-02-21] MEDS: LEVOTHYROXINE 100 MCG TABLET PO SCH (06:36)
[2019-02-21] MEDS: INSULIN HUMULIN R 100 UNIT/ML 3ML SQ SCH ×4 (06:37→20:41)
[2019-02-21 07:30] VITALS: BP 145/61
[2019-02-21] MEDS: REPAGLINIDE 1 MG TAB PO SCH ×3 (08:00→17:10)
[2019-02-21] MEDS: PANTOPRAZOLE SODIUM 40 MG TABLET.DR PO SCH (08:17)
[2019-02-21] MEDS: ASPIRIN 81 MG EC TAB PO SCH ×2 (08:17→20:48)
[2019-02-21] MEDS: GLIPIZIDE 5 MG TABLET PO SCH ×2 (08:17→17:10)
[2019-02-21] MEDS: FUROSEMIDE 20 MG TABLET PO SCH (08:17)
[2019-02-21] MEDS: ENOXAPARIN SODIUM 30 MG/0.3 ML SQ SCH (08:18)
[2019-02-21] MEDS: [UNRECOGNIZED DRUG - OTHER] PO SCH ×2 (08:19→20:42)
[2019-02-21] MEDS: INSULIN GLARGINE 100 UNITS/ML 10 ML VIAL SQ SCH (08:38)
[2019-02-21 11:00] VITALS: BP 139/68
[2019-02-21 16:00] VITALS: BP 142/79
[2019-02-21 19:00] VITALS: BP 137/67
[2019-02-21] MEDS: ATORVASTATIN CALCIUM 40 MG TABLET PO SCH (20:49)
[2019-02-21] MEDS: MEROPENEM 500 MG VIAL IVP SCH (20:49)
[2019-02-21 23:57] VITALS: BP 138/54
[2019-02-22 03:00] VITALS: BP 145/58
[2019-02-22 04:32] LABS: CREATININE 1.7 mg/dL (0.5-1.5); POTASSIUM 4.3 mmol/L (3.5-5.1)
[2019-02-22] MEDS: LEVOTHYROXINE 100 MCG TABLET PO SCH (05:42)
[2019-02-22] MEDS: INSULIN HUMULIN R 100 UNIT/ML 3ML SQ SCH ×4 (05:43→21:00)
[2019-02-22 07:00] VITALS: BP 168/74
[2019-02-22] MEDS: [UNRECOGNIZED DRUG - OTHER] PO SCH ×2 (09:00→21:00)
[2019-02-22] MEDS: PANTOPRAZOLE SODIUM 40 MG TABLET.DR PO SCH (09:32)
[2019-02-22] MEDS: GLIPIZIDE 5 MG TABLET PO SCH ×2 (09:32→17:00)
[2019-02-22] MEDS: REPAGLINIDE 1 MG TAB PO SCH ×3 (09:32→17:00)
[2019-02-22] MEDS: FUROSEMIDE 20 MG TABLET PO SCH (09:33)
[2019-02-22] MEDS: ASPIRIN 81 MG EC TAB PO SCH ×2 (09:33→21:28)
[2019-02-22] MEDS: ENOXAPARIN SODIUM 30 MG/0.3 ML SQ SCH (09:35)
[2019-02-22] MEDS: INSULIN GLARGINE 100 UNITS/ML 10 ML VIAL SQ SCH (09:40)
[2019-02-22 11:00] VITALS: BP 156/72
--- NOTE | 2019-02-22 12:41 | NUR ---
Nutrition Intervention: Nutrition screen based on LOS x 4 days. Pt. on 75gm CCD diet with good p.o. intake, as per pt. Labs reviewed(Alb 2.8, BUN 27, Creat 1.7, GFR 31, BG 73). Noted renal labs improving. LBM: 02/22/19, per pt. SR-21, elastic. Recommendations: 1) Continue current diet. 2) Continue to monitor pt's nutritional status. 3) Consult RD as nutrition concerns arise. Addendum: 02/22/19 at [address] Amended: Links added.
[2019-02-22 13:31] LABS: INR 0.96 (0.85-1.15); PROTHROMBIN TIME 10.1 SEC (9.6-11.6)
--- NOTE | 2019-02-22 14:32 | NUR ---
Dr. Carpenter called re; antibiotic states will take care of it later, re; antibiotic, dose and frequency. merchandising execution manager Cesilia schumacher.
[2019-02-22 16:00] VITALS: BP 155/81
[2019-02-22] MEDS: VANCOMYCIN 1.25 GM in SODIUM CHLORIDE 0.9% 250 ML IV SCH (17:57)
[2019-02-22 20:00] VITALS: BP 148/75
[2019-02-22] MEDS: ATORVASTATIN CALCIUM 40 MG TABLET PO SCH (21:28)
[2019-02-22 23:47] VITALS: BP 140/68
[2019-02-22] MEDS: MEROPENEM 500 MG VIAL IVP SCH (23:59)
[2019-02-23] VITALS (7 sets, daily range): BP systolic 108–154; BP diastolic 61–77
[2019-02-23] MEDS: LEVOTHYROXINE 100 MCG TABLET PO SCH (06:07)
[2019-02-23] MEDS: INSULIN HUMULIN R 100 UNIT/ML 3ML SQ SCH ×4 (06:38→21:08)
[2019-02-23] MEDS: FUROSEMIDE 20 MG TABLET PO SCH (08:59)
[2019-02-23] MEDS: ASPIRIN 81 MG EC TAB PO SCH ×2 (08:59→21:06)
[2019-02-23] MEDS: PANTOPRAZOLE SODIUM 40 MG TABLET.DR PO SCH (08:59)
[2019-02-23] MEDS: [UNRECOGNIZED DRUG - OTHER] PO SCH ×2 (09:00→21:00)
[2019-02-23] MEDS: GLIPIZIDE 5 MG TABLET PO SCH ×2 (09:00→17:00)
[2019-02-23] MEDS: REPAGLINIDE 1 MG TAB PO SCH ×3 (09:01→17:00)
[2019-02-23] MEDS: INSULIN GLARGINE 100 UNITS/ML 10 ML VIAL SQ SCH (09:09)
[2019-02-23] MEDS: ENOXAPARIN SODIUM 30 MG/0.3 ML SQ SCH (09:20)
[2019-02-23] MEDS: HYDROCODONE/ACETAMINOPHEN 5/325 MG TAB PO PRN (17:37)
[2019-02-23] MEDS: ATORVASTATIN CALCIUM 40 MG TABLET PO SCH (21:07)
[2019-02-23] MEDS: MEROPENEM 500 MG VIAL IVP SCH (23:07)
--- NOTE | 2019-02-24 03:40 | NUR ---
hypoglycemic ON ROUNDS FOR V/S CHECK , PT DROWSY ,DIFFICULT TO AROUSE , FELT WEAK, BS CHECKED 27, D50 GIVENIV PUSH AND FLUSHED APPROPRIATELY, TOLERATED WELL, REST OF V/S STABLE,NO ACUTE DISTRESS,MONITORED CLOSELY,ABLE TO RESPOND VERBALLY. Addendum: 02/24/19 at 0445 by ABE LINDSEY RN RN Amended: Links added.
[2019-02-24 04:00] VITALS: BP 142/69
[2019-02-24] MEDS: DEXTROSE 50%-WATER 50 ML DISP.SYRIN IV PRN (04:39)
[2019-02-24] MEDS: LEVOTHYROXINE 100 MCG TABLET PO SCH (05:58)
[2019-02-24] MEDS: INSULIN HUMULIN R 100 UNIT/ML 3ML SQ SCH ×4 (07:56→20:09)
[2019-02-24 08:07] VITALS: BP 164/73
[2019-02-24] MEDS: [UNRECOGNIZED DRUG - OTHER] PO SCH ×2 (09:00→19:59)
[2019-02-24] MEDS: REPAGLINIDE 1 MG TAB PO SCH ×3 (10:44→16:52)
[2019-02-24] MEDS: GLIPIZIDE 5 MG TABLET PO SCH ×2 (10:46→16:44)
[2019-02-24] MEDS: ASPIRIN 81 MG EC TAB PO SCH ×2 (10:47→19:57)
[2019-02-24] MEDS: PANTOPRAZOLE SODIUM 40 MG TABLET.DR PO SCH (10:47)
[2019-02-24] MEDS: ENOXAPARIN SODIUM 30 MG/0.3 ML SQ SCH (10:47)
[2019-02-24] MEDS: FUROSEMIDE 20 MG TABLET PO SCH (10:53)
[2019-02-24 11:00] VITALS: BP 159/69
[2019-02-24] MEDS: VANCOMYCIN 1.25 GM in SODIUM CHLORIDE 0.9% 250 ML IV SCH (15:04)
[2019-02-24 16:18] VITALS: BP 135/70
--- NOTE | 2019-02-24 16:52 | NUR ---
CM NOTE CM faxed referral to [facility]. CM to f/u with insurance for prior auth.
[2019-02-24 19:53] VITALS: BP 144/66
[2019-02-24] MEDS: ATORVASTATIN CALCIUM 40 MG TABLET PO SCH (19:57)
[2019-02-24] MEDS: MEROPENEM 500 MG VIAL IVP SCH (23:18)
[2019-02-25] MEDS: TRAMADOL HCL 50 MG TABLET PO PRN (00:46)
--- NOTE | 2019-02-25 01:00 | NUR ---
PAIN Pt medicated with Tramadol for mild pain.
[2019-02-25 04:00] VITALS: BP_SYST 156; BP_SYST 165; BP_DIAS 69; BP_DIAS 83
[2019-02-25] MEDS: INSULIN HUMULIN R 100 UNIT/ML 3ML SQ SCH ×4 (05:23→20:20)
[2019-02-25 05:27] LABS: BASOPHILS % (AUTO) 1.2 % (0.0-5.0); EOSINOPHILS % (AUTO) 2.7 % (0.0-8.0); HEMATOCRIT 29.4 % (36-48); LYMPHOCYTES % (AUTO) 23.3 % (21.0-51.0); MEAN CORPUSCULAR HGB CONC 33.8 g/dL (32.0-36.0); MEAN CORPUSCULAR VOLUME 91.6 fL (79-99); MONOCYTES % (AUTO) 9.6 % (3.0-13.0); NEUTROPHILS % (AUTO) 63.2 % (40.0-77.0); PLATELET COUNT (AUTO) 263 K/uL (130-400); RED BLOOD CELL COUNT(AUTO) 3.21 MIL/uL (4.00-5.50); RED CELL DISTRIBUTION WIDTH 13.8 % (11.0-15.5); WHITE BLOOD COUNT (AUTO) 10.5 K/uL (4.8-10.8)
[2019-02-25] MEDS: LEVOTHYROXINE 100 MCG TABLET PO SCH (06:02)
[2019-02-25 06:17] LABS: CREATININE 1.6 mg/dL (0.5-1.5); POTASSIUM 4.3 mmol/L (3.5-5.1)
[2019-02-25 07:30] VITALS: BP 139/76
[2019-02-25] MEDS: REPAGLINIDE 1 MG TAB PO SCH ×3 (08:00→16:27)
[2019-02-25] MEDS: [UNRECOGNIZED DRUG - OTHER] PO SCH ×2 (09:00→20:21)
[2019-02-25] MEDS: PANTOPRAZOLE SODIUM 40 MG TABLET.DR PO SCH (09:56)
[2019-02-25] MEDS: FUROSEMIDE 20 MG TABLET PO SCH (09:56)
[2019-02-25] MEDS: GLIPIZIDE 5 MG TABLET PO SCH ×2 (09:56→16:27)
[2019-02-25] MEDS: ASPIRIN 81 MG EC TAB PO SCH ×2 (09:57→20:21)
[2019-02-25] MEDS: ENOXAPARIN SODIUM 30 MG/0.3 ML SQ SCH (10:01)
[2019-02-25 11:00] VITALS: BP 111/77
[2019-02-25] MEDS ORDERED: CEFTRIAXONE SODIUM 2 GM VIAL IVP SCH (13:45)
--- NOTE | 2019-02-25 14:15 | NUR ---
CM Note: Cancelled VBAIU per Dr Prasad, pending [facility] and Rx approval CM met with pt discussed MD recommendations for home w/HH to infuse abx and care for PICC, family agreeable. JULITO signed for [facility]. Faxed order and clinicals to [facility] and [facility], confirmation received. Pt pending approval for , approval and delivery for Ceftriaxone 2 GM IV Q24hrs x 2 weeks w/[facility]. Primary nurse aware. CM to cont to follow up.
--- NOTE | 2019-02-25 14:30 | NUR ---
CM Note: [facility] approval CM spoke to Afia alarcon/[facility]. Pt has approval. Aware CM arranging approval and delivery for abx iv. Will call once everything's approve and has ETA for delivery of abx once approved. Primary nurse aware. CM to cont to follow up.
--- NOTE | 2019-02-25 14:31 | NUR ---
CM Note: [facility] pending approval and delivery of abx CM spoke to [facility], pending to receive script and clinicals, aware of confirmation. Will work on script as soon as received. Pt pending approval and delivery of Ceftriaxone 2GM IV Q24hrs X 2 weeks. Primary nurse aware. CM to cont to follow up.
[2019-02-25 16:00] VITALS: BP 116/78
--- NOTE | 2019-02-25 16:38 | NUR ---
CM Note: [facility] pending approval and delivery CM spoke to Gabriella w/[facility] , verbalized able to speak to pt spouse and informed of out of pocket charge. Spouse stated will be able to pay, will give card info to [facility] tomorrow morning between 9-10, Gabriella will coordinate w/spouse tomorrow. Will be able to ship abx overnight, ETA Monday around noon once able to receive payment from spouse tomorrow. Primary nurse aware. CM spoke to Afia alarcon/[facility]. Made aware of the above. Will see pt on Monday. Primary nurse aware to give 1pm abx dose tomorrow prior to pt dc. CM to cont to follow up.
[2019-02-25 19:00] VITALS: BP 126/76
[2019-02-25] MEDS: ATORVASTATIN CALCIUM 40 MG TABLET PO SCH (20:21)
[2019-02-25] MEDS ORDERED: PHARMACY COMMUNICATION MISC SCH (21:45)
[2019-02-26] VITALS: BP 128/53
[2019-02-26 04:00] VITALS: BP 111/51
[2019-02-26] MEDS: LEVOTHYROXINE 100 MCG TABLET PO SCH (05:44)
[2019-02-26] MEDS: INSULIN HUMULIN R 100 UNIT/ML 3ML SQ SCH ×4 (06:08→21:00)
--- NOTE | 2019-02-26 07:00 | NUR ---
MED CLARIFICATION RX MADE NURSE AWARE THAT CLARIFICATION WAS NEEDED FOR ROCEPHIN DUE TO PT ALLERGY TO PENICILLINS, PER DR ARNULFO CODY TO CONTINUE WITH ROCEPHIN. PER PT ALLERGIC REACTION IS IN FORM OF RASH, AND SHE DOES NOT RECALL RECEIVING PENICILLINS RECENTLY, THE LAST TIME WAS MANY YEARS AGO.
[2019-02-26] MEDS ORDERED: PHARMACY COMMUNICATION MISC SCH (07:15)
[2019-02-26 07:30] VITALS: BP 99/76
[2019-02-26] MEDS ORDERED: CEFTRIAXONE SODIUM 2 GM VIAL IVP SCH (07:30)
[2019-02-26] MEDS: [UNRECOGNIZED DRUG - OTHER] PO SCH ×2 (09:00→19:56)
[2019-02-26] MEDS: PANTOPRAZOLE SODIUM 40 MG TABLET.DR PO SCH (09:09)
[2019-02-26] MEDS: ASPIRIN 81 MG EC TAB PO SCH ×2 (09:09→19:56)
[2019-02-26] MEDS: ENOXAPARIN SODIUM 30 MG/0.3 ML SQ SCH (09:10)
[2019-02-26] MEDS: REPAGLINIDE 1 MG TAB PO SCH ×3 (09:11→17:04)
[2019-02-26] MEDS: GLIPIZIDE 5 MG TABLET PO SCH ×2 (09:12→17:04)
[2019-02-26] MEDS: FUROSEMIDE 20 MG TABLET PO SCH (09:12)
--- NOTE | 2019-02-26 09:35 | NUR ---
CM Note: [facility] pending approval and delivery CM left voicemail for Gabriella w/[facility] , pending call back. Pt pending approval and delivery of abx. Aware dcp for today after 1pm dose given. Primary nurse aware. CM to cont to follow up.
--- NOTE | 2019-02-26 09:43 | NUR ---
CM Note: [facility] approval delivery ETA 2AM tomorrow CM spoke to Gabriella alarcon/[facility]. Pt has approval for Ceftriaxone 2GM IV Q24HRS X 2 WEEKS. Medicate ETA delivery 2AM tomorrow, stated updated [facility] for ETA, primary nurse to infuse 1pm dose today then DC pt via private car once done. Primary nurse aware. CM to cont to follow up.
[2019-02-26 11:00] VITALS: BP 126/65
[2019-02-26] MEDS ORDERED: DiphenhydrAMINE HCL 50 MG/ML VIAL IV PRN ×2 (11:00→11:45)
--- NOTE | 2019-02-26 11:00 | NUR ---
PAGED DR. ARREDONDO AT 1045 REGARDING PATIENT WITH ALLERGIC REACTION OF ITCHING/HIVES TO BACK, LEGS AND ARMPITS. PER DR. ARREDONDO, STOP ROCEPHIN AND START LEVAQUIN 750MG IV Q24, INVANZ 1G Q24, SOLUMEDROL 40MG IVP X 1 DOSE AND BENADRYL 25MG IVP TID/PRN. ORDERS PLACED AND CARRIED OUT
--- NOTE | 2019-02-26 11:35 | NUR ---
BENADRYL 25MG IVP GIVEN, PATIENT STABLE AT THIS TIME.
--- NOTE | 2019-02-26 11:38 | NUR ---
CM Note: [facility] cancelled Ceftriaxone, pending approval and delivery for Invanz. CM spoke to primary nurse Katy, pt had allergy reaction for Ceftriaxone during administration today. Dr Prasad made aware, cancelled Ceftriaxone, stated change to Invanz 1GM IV Daily X 7 days, will sign script once he rounds. Flagged script in the chat. Pt and spouse aware of changes, agreeable for MD recommendations. CM spoke to Gabriella w/[facility] made aware of changes, Ceftriaxone has not been shipped out yet will cancel and will coordinate w/spouse regarding possible change in pricing for Invanz. Aware will fax script as soon as signed by Dr Prasad. CM spoke to Afia alarcon/[facility], made aware of the above. Anticipated dcp for tomorrow once new medication is approved and has delivery ETA. Primary nurse aware of changes. CM to cont to follow up.
[2019-02-26] MEDS ORDERED: METHYLPREDNISOLONE SOD SUCC 40MG/ML 1ML IVP SCH (11:45)
[2019-02-26] MEDS: LEVOFLOXACIN 750 MG/D5W 150 ML 150 ML IV SCH (12:56)
[2019-02-26] MEDS: INVANZ 1GM+NS 50ML IVPB 50 ML IV SCH (15:13)
[2019-02-26 16:00] VITALS: BP 124/73
[2019-02-26] MEDS: HYDROCODONE/ACETAMINOPHEN 5/325 MG TAB PO PRN (17:26)
[2019-02-26] MEDS: ATORVASTATIN CALCIUM 40 MG TABLET PO SCH (19:56)
[2019-02-26 20:24] VITALS: BP 139/82
[2019-02-27 00:24] VITALS: BP 123/61
[2019-02-27 04:24] VITALS: BP 153/68
[2019-02-27] MEDS: LEVOTHYROXINE 100 MCG TABLET PO SCH (06:51)
[2019-02-27] MEDS: INSULIN HUMULIN R 100 UNIT/ML 3ML SQ SCH ×3 (06:56→16:09)
[2019-02-27] MEDS: GLIPIZIDE 5 MG TABLET PO SCH ×2 (07:35→15:59)
[2019-02-27 07:39] VITALS: BP 149/73
[2019-02-27] MEDS: ASPIRIN 81 MG EC TAB PO SCH (08:17)
[2019-02-27] MEDS: REPAGLINIDE 1 MG TAB PO SCH ×3 (08:17→16:11)
[2019-02-27] MEDS: PANTOPRAZOLE SODIUM 40 MG TABLET.DR PO SCH (08:17)
[2019-02-27] MEDS: FUROSEMIDE 20 MG TABLET PO SCH (08:17)
[2019-02-27] MEDS: [UNRECOGNIZED DRUG - OTHER] PO SCH (08:18)
[2019-02-27] MEDS: ENOXAPARIN SODIUM 30 MG/0.3 ML SQ SCH (08:19)
[2019-02-27] MEDS ORDERED: LEVOFLOXACIN 750 MG/D5W 150 ML 150 ML IV SCH (09:00)
[2019-02-27] MEDS: LEVOFLOXACIN 750 MG/D5W 150 ML 150 ML IV SCH (10:19)
[2019-02-27 11:20] VITALS: BP 141/75
[2019-02-27] MEDS: INVANZ 1GM+NS 50ML IVPB 50 ML IV SCH (13:34)
[2019-02-27 15:53] VITALS: BP 139/92
--- NOTE | 2019-02-27 17:06 | NUR ---
INSTRUCTIONS DISCHARGE INSTRUCTIONS GIVEN TO PATIENT AND SPOUSE. NEW PRESCRIPTION CALLED IN TO PREFERRED PHARMACY REQUESTED. REPORT WAS CALLED TO TANNA MARIE AT [facility]. NO COMPLAINTS OF PAIN OR DISCOMFORT. PICC LINE TO LEFT UPPER ARM IS PATENT AND FLUSHING WELL TO BOTH PORTS. NO QUESTIONS OR CONCERNS VOICED. PENDING RIDE HOME.
== END 2019-02-27 17:20 | disposition home health service (06) | DRG 872 ==
LOC: EDH 15:43 → OBSVTOIN 17:48 → EDHIP 17:48 → 4CH 22:26 → 4BH 02-25 05:22
PROVIDERS: ADMIT Internal Medicine Critical Care Medicine; ATTEND Internal Medicine Critical Care Medicine
PROC: 02HV33Z Insertion of Infusion Device into Superior Vena Cava, Percutaneous Approach (ICD-10-PCS; principal; 2019-02-23)
DX: A40.9 Streptococcal sepsis, unspecified (principal); I50.32 Chronic diastolic (congestive) heart failure; N30.00 Acute cystitis without hematuria; Z16.24 Resistance to multiple antibiotics; N17.9 Acute kidney failure, unspecified; M25.461 Effusion, right knee; E11.319 Type 2 diabetes mellitus with unspecified diabetic retinopathy without macular edema; M19.90 Unspecified osteoarthritis, unspecified site; K57.90 Diverticulosis of intestine, part unspecified, without perforation or abscess without bleeding; T36.1X5A Adverse effect of cephalosporins and other beta-lactam antibiotics, initial encounter; E11.51 Type 2 diabetes mellitus with diabetic peripheral angiopathy without gangrene; E66.01 Morbid (severe) obesity due to excess calories; Z88.0 Allergy status to penicillin; E78.00 Pure hypercholesterolemia, unspecified; I11.0 Hypertensive heart disease with heart failure; E03.9 Hypothyroidism, unspecified; E87.6 Hypokalemia; Z96.653 Presence of artificial knee joint, bilateral; E78.5 Hyperlipidemia, unspecified; Y92.89 Other specified places as the place of occurrence of the external cause; Z79.899 Other long term (current) drug therapy; Z83.3 Family history of diabetes mellitus; Z79.4 Long term (current) use of insulin
CPT/HCPCS: 36415; 71045; 73700; 80048; 80053; 81001; 82550; 82947; 82948; 83605; 83874; 84145; 84484; 85025; 85027; 85610; 85730; 87040; 87077; 87088; 87186; 93005; 93306; 97039; 99291; C1894; G0378; J0696; J1200; J1335; J1650; J1815; J1956; J2185; J2920; J3370; J3490; J7030; J7070

== ENCOUNTER 2019-09-26 13:16 | Emergency (ER) | payer OTHER ==
[~2019-09-26 13:16] MED LIST changes: -MACR100 PO; +ONDA4TAB10 PO; +SIME180C46 PO; +TRAM50TA4 PO; +[UNRECOGNIZED DRUG - OTHER] PO
[2019-09-26] MEDS ORDERED: SODIUM CHLORIDE 0.9% 1000ML 1,000 ML IV ONE (14:11)
[2019-09-26 16:04] LABS: RAPID GROUP A STREP NEGATIVE (NEGATIVE)
[2019-09-26 16:17] LABS: BASOPHILS % (AUTO) 0.2 % (0.0-5.0); MONOCYTES % (AUTO) 8.6 % (3.0-13.0)
[2019-09-26 16:21] LABS: HEMATOCRIT 39.8 % (36-48); LYMPHOCYTES % (AUTO) 27.7 % (21.0-51.0); MEAN CORPUSCULAR HEMOGLOBIN 30.7 pg (27.0-33.0); MEAN CORPUSCULAR HGB CONC 32.7 g/dL (32.0-36.0); MEAN CORPUSCULAR VOLUME 93.9 fL (79-99); NEUTROPHILS % (AUTO) 63.2 % (40.0-77.0); PLATELET COUNT (AUTO) 192 K/uL (130-400); RED BLOOD CELL COUNT(AUTO) 4.24 MIL/uL (4.00-5.50); RED CELL DISTRIBUTION WIDTH 13.7 % (11.0-15.5); WHITE BLOOD COUNT (AUTO) 9.5 K/uL (4.8-10.8)
[2019-09-26 16:29] LABS: CREATININE 2.2 mg/dL (0.5-1.5); POTASSIUM 4.4 mmol/L (3.5-5.1)
[2019-09-26 16:33] LABS: ALBUMIN 3.3 g/dL (3.5-5.0); BILIRUBIN,TOTAL 0.4 mg/dL (0.2-1.0); TOTAL PROTEIN, SERUM 7.9 g/dL (6.0-8.3)
== END 2019-09-26 17:50 | disposition home or self-care (01) ==
LOC: EDH 13:16
DX: R50.9 Fever, unspecified (principal); Z20.828 Contact with and (suspected) exposure to other viral communicable diseases; N39.0 Urinary tract infection, site not specified; E11.9 Type 2 diabetes mellitus without complications; Z88.0 Allergy status to penicillin
CPT/HCPCS: 36415; 71045; 80053; 84484; 85025; 87804 ×2; 87880; 93005; 99285; J7030; U0003

== ENCOUNTER 2021-02-12 08:20 | Observation (INO) | payer OTHER ==
[~2021-02-12] VITALS: Ht 157.5 cm; Wt 84.9 kg
[~2021-02-12 08:20] MED LIST changes: -SIME180C46 PO; +SIME180C70 PO
[2021-02-12 08:54] LABS: BASOPHILS % (AUTO) 0.6 % (0.0-5.0); EOSINOPHILS % (AUTO) 0.1 % (0.0-8.0); LYMPHOCYTES % (AUTO) 7.5 % (21.0-51.0); MEAN CORPUSCULAR HEMOGLOBIN 31.1 pg (27.0-33.0); MEAN CORPUSCULAR HGB CONC 32.9 g/dL (32.0-36.0); MEAN CORPUSCULAR VOLUME 94.6 fL (79-99); MONOCYTES % (AUTO) 4.9 % (3.0-13.0); PLATELET COUNT (AUTO) 269 K/uL (130-400); RED BLOOD CELL COUNT(AUTO) 4.44 MIL/uL (4.00-5.50); RED CELL DISTRIBUTION WIDTH 14.4 % (11.0-15.5); WHITE BLOOD COUNT (AUTO) 18.1 K/uL (4.8-10.8)
[2021-02-12] MEDS ORDERED: 0.9%NACL 1000ML 2,000 ML IV ONE (09:00)
[2021-02-12] MEDS ORDERED: ACETAMINOPHEN 500 MG TABLET ONE (09:02)
[2021-02-12 09:04] LABS: APPEARANCE,URINE Clear (CLEAR); BILIRUBIN,URINE Negative (NEGATIVE); COLOR,URINE Yellow (YELLOW); GLUCOSE, URINE (UA) TRACE mg/dL (NEGATIVE); KETONES,URINE Negative (NEGATIVE); LEUKOCYTE ESTERASE ,URINE Negative (NEGATIVE); NITRATE,URINE Negative (NEGATIVE); OCCULT BLOOD,URINE Negative (NEGATIVE); PROTEIN,URINE Trace mg/dL (NEGATIVE); UROBILINOGEN,URINE 0.2 mg/dL (0.2-1.0)
[2021-02-12 09:17] LABS: BACTERIA,URINE Rare /HPF (None Seen); RBC,URINE None Seen /HPF (0-1)
[2021-02-12] MEDS: ACETAMINOPHEN 325 MG TAB PO SCH (09:17)
[2021-02-12 09:18] LABS: SQUAMOUS EPITHELIAL CELL,UR Few /HPF (0-2)
[2021-02-12 09:20] LABS: ALANINE AMINOTRANSFERASE 17 U/L (12-78); ALBUMIN 2.9 g/dL (3.5-5.0); ASPARTATE AMINOTRANSFERASE 19 U/L (10-37); BILIRUBIN,TOTAL 0.7 mg/dL (0.2-1.0); CARBON DIOXIDE 27 mmol/L (21-32); CHLORIDE 97 mmol/L (101-111); CREATININE 2.5 mg/dL (0.5-1.5); GLOMERULAR FILTR. RATE CALC 20 mL/min (>60); GLUCOSE,RANDOM 180 mg/dL (70-105); POTASSIUM 3.9 mmol/L (3.5-5.1); SODIUM SERUM 134 mmol/L (136-145); TOTAL PROTEIN, SERUM 8.2 g/dL (6.0-8.3); UREA NITROGEN, BLOOD 33 mg/dL (7-18)
[2021-02-12 09:39] LABS: LIPASE < 50 U/L (114-286)
[2021-02-12] MEDS ORDERED: CEFTRIAXONE 2GM VIAL ONE (09:55)
[2021-02-12] MEDS ORDERED: AZITHROMYCIN 500MG VIAL IVPB ONE (10:00)
[2021-02-12] MEDS ORDERED: COMPOUND IV REFRIGERATED 1 EACH IVSOLN MISC PRN (10:00)
[2021-02-12] MEDS ORDERED: VANCOMYCIN 1G 1.5 GM in 0.9% NACL 250ML 250 ML IV SCH (10:00)
[2021-02-12] MEDS ORDERED: CEFTRIAXONE 2GM VIAL IVP SCH (10:00)
[2021-02-12] MEDS: CEFTRIAXONE 2GM VIAL IVP SCH (11:21)
[2021-02-12] MEDS ORDERED: ACETAMINOPHEN 325 MG TAB PO PRN (11:30)
[2021-02-12] MEDS: INSULIN HUMULIN R 100 UNIT/ML 3ML SQ SCH ×3 (11:30→21:48)
[2021-02-12] MEDS ORDERED: ONDANSETRON 4MG INJ IVP PRN (11:30)
[2021-02-12] MEDS ORDERED: PHARMACY COMMUNICATION MISC SCH (11:30)
[2021-02-12] MEDS ORDERED: CLONIDINE HCL 0.1 MG TABLET PO PRN ×2 (11:30)
[2021-02-12] MEDS ORDERED: LACTULOSE 20 GM/30 ML UDCUP PO PRN (11:30)
[2021-02-12] MEDS: LACTATED RINGERS 1000ML 1,000 ML IV SCH ×2 (11:30→21:30)
[2021-02-12] MEDS ORDERED: ACETAMINOPHEN 650 MG SUPPOSITORY RC PRN (11:30)
[2021-02-12] MEDS ORDERED: TEMAZEPAM 15 MG CAPSULE PO PRN (11:30)
[2021-02-12] MEDS ORDERED: 0.9% NACL 250ML IVPB SCH (11:30)
[2021-02-12] MEDS ORDERED: AZITHROMYCIN 500MG VIAL IVPB SCH (11:30)
[2021-02-12] MEDS ORDERED: 0.9%NACL 1000ML 477 ML IV ONE (12:00)
[2021-02-12] MEDS: AZITHROMYCIN 500MG+NS 250ML 250 ML IV SCH (12:00)
[2021-02-12] MEDS: 0.9%NACL 1000ML 1,000 ML IV SCH ×2 (12:01→21:48)
[2021-02-12] MEDS: SOLU-MEDROL 125MG VIAL IVP SCH ×2 (12:01→20:23)
[2021-02-12 13:29] LABS: ABG BASE EXCESS -1.7 mmol/L (-2.0-3.0); ABG PCO2 34 mmHg (32-45)
[2021-02-12] MEDS ORDERED: IPRATROPIUM/ALBUTEROL SULFATE 3 ML SOLUTION IH SCH (14:00)
[2021-02-12] MEDS ORDERED: IPRATROPIUM/ALBUTEROL SULFATE 3 ML SOLUTION IH PRN (16:00)
[2021-02-12 23:25] VITALS: BP 139/87
[2021-02-13 00:04] VITALS: BP 138/68
[2021-02-13] MEDS: SOLU-MEDROL 125MG VIAL IVP SCH ×2 (03:39→11:50)
[2021-02-13 04:04] VITALS: BP 143/78
[2021-02-13 05:14] LABS: BASOPHILS % (AUTO) 0.2 % (0.0-5.0); HEMATOCRIT 38.3 % (36-48); LYMPHOCYTES % (AUTO) 8.8 % (21.0-51.0); MEAN CORPUSCULAR HGB CONC 32.9 g/dL (32.0-36.0); MEAN CORPUSCULAR VOLUME 94.3 fL (79-99); MONOCYTES % (AUTO) 1.1 % (3.0-13.0); NEUTROPHILS % (AUTO) 88.8 % (40.0-77.0); PLATELET COUNT (AUTO) 256 K/uL (130-400); RED BLOOD CELL COUNT(AUTO) 4.06 MIL/uL (4.00-5.50); RED CELL DISTRIBUTION WIDTH 14.3 % (11.0-15.5); WHITE BLOOD COUNT (AUTO) 12.7 K/uL (4.8-10.8)
[2021-02-13 05:28] LABS: HEMOGLOBIN A1C 8.8 % (4.0-6.0)
[2021-02-13 05:56] LABS: B-TYPE NATRIURETIC PEPTIDE 247 pg/mL (0-100)
[2021-02-13] MEDS: 0.9%NACL 1000ML 1,000 ML IV SCH (05:59)
[2021-02-13] MEDS: LACTATED RINGERS 1000ML 1,000 ML IV SCH (05:59)
[2021-02-13 06:19] LABS: CREATININE 2.2 mg/dL (0.5-1.5); PHOSPHORUS 3.9 mg/dL (2.5-4.9); POTASSIUM 3.2 mmol/L (3.5-5.1)
[2021-02-13 06:41] LABS: THYROID STIMULATING HORMONE 0.55 uIU/mL (0.36-3.74)
[2021-02-13] MEDS ORDERED: SODIUM CHLORIDE 3% FOR INHALATION 4 ML/AMP VIAL.NEB IH ONE (06:43)
[2021-02-13] MEDS: INSULIN HUMULIN R 100 UNIT/ML 3ML SQ SCH ×2 (07:45→11:50)
[2021-02-13] MEDS: ACETAMINOPHEN 325 MG TAB PO SCH (09:00)
[2021-02-13] MEDS ORDERED: ENOXAPARIN SODIUM 40 MG/0.4 ML SYRINGE SQ SCH (09:00)
[2021-02-13] MEDS ORDERED: ASPIRIN 81MG CHEW TAB PO SCH (09:00)
[2021-02-13] MEDS ORDERED: LEVOTHYROXINE 100 MCG TABLET PO SCH (09:00)
[2021-02-13] MEDS ORDERED: CEFTRIAXONE 2GM VIAL IVP SCH (09:00)
[2021-02-13] MEDS ORDERED: HEPARIN 5,000 UNIT VIAL SQ SCH (09:00)
[2021-02-13] MEDS ORDERED: PANTOPRAZOLE 40 MG TAB DR PO SCH (09:00)
[2021-02-13] MEDS ORDERED: POLYETHYLENE GLYCOL 3350 17 GM POWD.PACK PO SCH (09:00)
[2021-02-13 09:39] VITALS: BP 146/87
[2021-02-13] MEDS: CEFTRIAXONE 2GM VIAL IVP SCH (10:45)
[2021-02-13] MEDS ORDERED: PANT40TA54 PO (11:22)
[2021-02-13] MEDS ORDERED: ONDA4TAB10 PO (11:22)
[2021-02-13] MEDS ORDERED: OMEP40CA21 PO (11:22)
[2021-02-13] MEDS ORDERED: GABA-529 PO (11:22)
[2021-02-13] MEDS ORDERED: OXYB10TA30 PO (11:22)
[2021-02-13] MEDS ORDERED: 0.9% NACL 250ML 250 ML ONE (11:40)
[2021-02-13] MEDS: AZITHROMYCIN 500MG+NS 250ML 250 ML IV SCH (11:51)
[2021-02-13 12:00] VITALS: BP 152/82
[2021-02-13] MEDS ORDERED: AZIT500T2 PO (15:42)
[2021-02-13] MEDS ORDERED: ATORVASTATIN 40 MG TABLET PO SCH (21:00)
== END 2021-02-13 19:15 | disposition home or self-care (01) ==
LOC: EDH 08:20 → EDHIP 11:28 → 3AH 21:31
PROVIDERS: ADMIT Internal Medicine Pulmonary Disease; ATTEND Internal Medicine Pulmonary Disease
DX: T88.1XXA Other complications following immunization, not elsewhere classified, initial encounter (principal); Z20.822 Contact with and (suspected) exposure to COVID-19; E11.22 Type 2 diabetes mellitus with diabetic chronic kidney disease; N18.9 Chronic kidney disease, unspecified; E78.5 Hyperlipidemia, unspecified; E03.9 Hypothyroidism, unspecified; J18.9 Pneumonia, unspecified organism; E66.9 Obesity, unspecified; I95.9 Hypotension, unspecified; Z88.0 Allergy status to penicillin; Z79.899 Other long term (current) drug therapy; Z86.16 Personal history of COVID-19; Z79.890 Hormone replacement therapy
CPT/HCPCS: 36415 ×2; 36600; 71045; 71250; 78582; 80048; 80053; 81001; 82550 ×3; 82803; 82948 ×5; 83036; 83605 ×3; 83690; 83735; 83874 ×3; 83880; 84100; 84443; 84484 ×4; 85025 ×2; 85378; 87040 ×2; 87088; 87635; 93005; 93306; 93356; 94640 ×2; 94664; 96361 ×2; 96365; 96366 ×2; 96368; 96372 ×2; 96375; 96376 ×2; 99291; A9540; A9558; C9803; G0378 ×29; J0456; J0696; J1644; J1815 ×4; J2930 ×4; J3370; J7050 ×2; 87071; 87205

== ENCOUNTER 2022-10-10 12:29 | Emergency (ER) | payer OTHER ==
[~2022-10-10] VITALS: Ht 162.6 cm; Wt 81.6 kg
[~2022-10-10 12:29] MED LIST changes: +AZIT500T2 PO; +GABA-529 PO; -GLIP10TA9 PO; -HYDR-4457 PO; -INSU3INS3 SQ; +OMEP40CA21 PO; +OXYB10TA30 PO; +PANT40TA54 PO; -REPA2TAB8 PO; -SIME180C70 PO; -TRAM50TA4 PO; -[UNRECOGNIZED DRUG - OTHER] PO
[2022-10-10] MEDS ORDERED: LACTATED RINGERS 1000ML 1,000 ML IV ONE (13:00)
[2022-10-10 13:04] LABS: APPEARANCE,URINE CLEAR (CLEAR); BILIRUBIN,URINE NEGATIVE (NEGATIVE); COLOR,URINE YELLOW (YELLOW); GLUCOSE, URINE (UA) NEGATIVE (NEGATIVE); KETONES,URINE NEGATIVE (NEGATIVE); LEUKOCYTE ESTERASE ,URINE SMALL Leu/uL (NEGATIVE); NITRATE,URINE NEGATIVE (NEGATIVE); OCCULT BLOOD,URINE NEGATIVE (NEGATIVE); PH,URINE 6.5 (5.0-8.0); PROTEIN,URINE NEGATIVE (NEGATIVE); UROBILINOGEN,URINE 0.2 mg/dL (0.2-1.0)
[2022-10-10 13:19] LABS: BASOPHILS % (AUTO) 0.4 % (0.0-5.0); EOSINOPHILS % (AUTO) 1.3 % (0.0-8.0); HEMATOCRIT 37.6 % (36-48); LYMPHOCYTES % (AUTO) 16.4 % (21.0-51.0); MEAN CORPUSCULAR HEMOGLOBIN 30.1 pg (27.0-33.0); MEAN CORPUSCULAR VOLUME 91.3 fL (79-99); NEUTROPHILS % (AUTO) 75.5 % (40.0-77.0); PLATELET COUNT (AUTO) 310 K/uL (130-400); RED BLOOD CELL COUNT(AUTO) 4.12 MIL/uL (4.00-5.50); RED CELL DISTRIBUTION WIDTH 13.8 % (11.0-15.5); WHITE BLOOD COUNT (AUTO) 14.8 K/uL (4.8-10.8)
[2022-10-10 13:26] LABS: RBC,URINE 0-1 /HPF (0-1)
[2022-10-10 13:27] LABS: BACTERIA,URINE Moderate /HPF (None Seen)
[2022-10-10 13:29] LABS: SQUAMOUS EPITHELIAL CELL,UR Few /HPF (0-2)
[2022-10-10 13:30] LABS: CREATININE 1.7 mg/dL (0.5-1.5); POTASSIUM 4.2 mmol/L (3.5-5.1)
[2022-10-10 13:34] LABS: ALBUMIN 3.5 g/dL (3.5-5.0); TOTAL PROTEIN, SERUM 7.8 g/dL (6.0-8.3)
[2022-10-10] MEDS ORDERED: LIDOP TP (16:40)
[2022-10-10 18:02] VITALS: BP 128/71
== END 2022-10-10 18:06 | disposition home or self-care (01) ==
LOC: EDH 12:29 → EEVIPCON 12:29 → EDH 18:06
DX: M54.50 Low back pain, unspecified (principal); E78.5 Hyperlipidemia, unspecified; E11.9 Type 2 diabetes mellitus without complications; Z88.0 Allergy status to penicillin; Z79.899 Other long term (current) drug therapy; Z90.49 Acquired absence of other specified parts of digestive tract
CPT/HCPCS: 99284; 96360; 96361; 72131; 82150; 82550; 84484; 80053; 85025; 87088; 81001; 36415; 93005; J7120

== ENCOUNTER 2023-04-10 14:01 | Emergency (ER) | payer OTHER ==
[~2023-04-10] VITALS: Ht 162.6 cm; Wt 81.6 kg
[~2023-04-10 14:01] MED LIST changes: +LIDOP TP
[2023-04-10 16:00] VITALS: BP 129/68; PULSE 106; RESP 16
== END 2023-04-10 19:28 | disposition left against medical advice (07) ==
LOC: EDH 14:01
DX: R53.1 Weakness (principal); Z53.21 Procedure and treatment not carried out due to patient leaving prior to being seen by health care provider
CPT/HCPCS: 99281